=== PATIENT | female | born 1970 | race Caucasian/White ===

== ENCOUNTER 2019-05-30 10:36 | Emergency (ER) | payer OTHER, SELFPAY ==
--- NOTE | ~2019-05-30 | XR_ITS ---
XR chest 2V DATE: 05/30/2019 11:53 INDICATION: Cough and congestion for 3 weeks. Nonsmoker. TECHNIQUE: PA and lateral views COMPARISON: None FINDINGS: Bilateral hyperinflation. There is focal consolidation in the medial basilar right lower lobe; given the history of cough and c ongestion for 3 weeks, right lower lobe pneumonia is suspected. No pulmonary infiltrate or consolidation, pleural effusion or pulmonary vascular congestion or pneumo thorax is noted otherwise. Normal heart size. Included skeletal structures are unremarkable. IMPRESSION: Medial basilar right lower lobe consolidation, suggesting pneumonia Reviewed, dictated and finalized at location B. [employer]
[2019-05-30 11:00] VITALS: BP 113/68; PULSE 88; RESP 16; TEMP 36.9; O2SAT 100
--- NOTE | 2019-05-30 11:41 | ED.URI ---
HPI - URI/Sore Throat General Chief Complaint: Upper Respiratory Infection Stated Complaint: Head and Chest Congestion / ears Time Seen by Provider: 05/30/19 11:33 Source: patient and RN notes reviewed Mode of arrival: ambulatory Limitations: no limitations History of Present Illness HPI Narrative: Patient presents today with a 4-week history of occasionally productive cough with green sputum, bilateral rib pain, body aches, congestion. Denies fever or shortness of breath. She has been taking DayQuil, NyQuil, Mucinex, Zyrtec, and Zicam with mild relief. MD elicited complaint: cough and nasal congestion Related Data Allergies Allergy/AdvReac Type Severity Reaction Status Date / Time No Known Allergies Allergy Verified 05/30/19 11:36 Review of Systems Review of Systems: Narrative: CONSTITUTIONAL: Denies fever, chills, or sweats. EYES: Denies visual changes, redness, or discharge. ENT: Denies rhinorrhea, sore throat, or otalgia.+Congestion CARDIOVASCULAR: Denies chest pain, palpitations, or edema. RESPIRATORY: Denies dyspnea.+Cough, Bilateral rib pain GASTROINTESTINAL: Denies abdominal pain, nausea, vomiting, or diarrhea. GENITOURINARY: Denies dysuria or hematuria. SKIN: Denies rash, itching, or wounds. MUSCULOSKELETAL: Denies back pain, joint pain, or myalgia. NEUROLOGIC: Denies headache, numbness, tingling, or weakness. PSYCH: Denies depression or anxiety. [facility] Past Medical History Medical History (Updated 05/30/19 @ 12:09 by Maria D Florentino, [facility], ) Factor V Leiden Comments At time of signature, I have reviewed and agree with nursing past medical, surgical, social and family history unless otherwise noted. Please see nursing chart for further information. There is no relevant family history pertinent to the presenting complaint Exam Narrative: Exam Narrative: GENERAL: Mildly ill-appearing, well-nourished, and in no acute distress. HEAD: Normocephalic, atraumatic. EYES: EOMI. No redness or drainage. Conjunctivae normal. ENT: Mucous membranes pink and moist. Nares clear. No rhinorrhea. TMs normal bilaterally. Throat normal. Uvula midline. NECK: Normal AROM. Supple. No lymphadenopathy. CHEST: No respiratory distress. Slight crackle in the right lower lobe, otherwise clear. HEART: Regular rate and rhythm. No murmur appreciated. Normal peripheral pulses. ABDOMEN: Soft, nontender, nondistended, normal active bowel sounds. MUSCULOSKELETAL: No bony tenderness. EXTREMITIES: Normal range of motion. No edema. SKIN: Warm, dry, no rash. NEURO: No focal deficits. Alert and oriented x3. Gait steady. PSYCH: Normal affect. No signs of depression or anxiety. Course Vital Signs Vital signs: Vital Signs Temperature 98.4 F 05/30/19 11:00 Pulse Rate 88 05/30/19 11:00 Respiratory Rate 16 05/30/19 11:00 Blood Pressure 113/68 05/30/19 11:00 Pulse Oximetry 100 05/30/19 11:00 Temperature 98.4 F 05/30/19 11:00 Pulse Rate 88 05/30/19 11:00 Respiratory Rate 16 05/30/19 11:00 Blood Pressure 113/68 05/30/19 11:00 Pulse Oximetry 100 05/30/19 11:00 Reviewed MDM - URI/Sore Throat Differential Diagnosis Differential diagnosis: Likely upper respiratory infection, sinusitis, viral infection, bronchitis and other (Pneumonia) Imaging Data Radiologist's impression: ITS Impressions Chest X-Ray 05/30/19 11:56 IMPRESSION: Medial basilar right lower lobe consolidation, suggesting pneumonia Critical Care Time Critical Care Time Critical Care Time: No Discharge Plan Discharge Clinical Impression: Pneumonia Qualifiers: Pneumonia type: due to unspecified organism Laterality: right Lung location: lower lobe of lung Qualified Code(s): J18.9 - Pneumonia, unspecified organism Patient Disposition: Home, Self-Care Condition: Stable Instructions: Antibiotic Form, Pneumonia (ED) Additional Instructions: Your chest x-ray shows some pneumonia in the right lower lobe
== END 2019-05-30 12:15 | disposition home or self-care (01) ==
PROVIDERS: Emergency Provider Nurse Practitioner; PCP Family Medicine
DX: J18.9 Pneumonia, unspecified organism (principal); D68.2 Hereditary deficiency of other clotting factors
CPT/HCPCS: 71046; 99203; G0463

== ENCOUNTER 2020-02-28 06:53 | Outpatient (NON) | payer OTHER, SELFPAY ==
[2020-02-29 14:04] LABS: SARS-CoV-2 RNA PCR Negative
== END 2020-02-28 06:54 ==
LOC: ANHCOVIDDT 06:53
PROVIDERS: PCP Family Medicine; Visit Provider Family Medicine
DX: R68.89 Other general symptoms and signs (principal); Z20.828 Contact with and (suspected) exposure to other viral communicable diseases
CPT/HCPCS: 87635; C9803; U0003